=== PATIENT | female | born 1985 | race African-American/Black ===

== ENCOUNTER 2021-04-14 19:29 | Emergency (ER) | payer BC ==
[~2021-04-14] VITALS: Ht 165.1 cm; Wt 81.6 kg
[2021-04-14 19:33] VITALS: BP_SYST 139
[2021-04-14] MEDS ORDERED: ONDANSETRON HCL 4 MG/2 ML VIAL IVP ONE (20:00)
[2021-04-14 20:55] LABS: CALCIUM 8.5 mg/dL (8.4-11.0); CREATININE 0.6 mg/dL (0.55-1.30); POTASSIUM 3.8 mmol/L (3.5-5.1)
[2021-04-14 21:05] LABS: ALBUMIN 3.2 g/dL (3.4-4.8); TOTAL BILIRUBIN 1.9 mg/dL (0.0-1.0)
[2021-04-14 21:10] LABS: EOSINOPHILS % (AUTO) 0.3 % (0.0-4.0); HEMOGLOBIN 11.8 g/dL (12.0-16.0); MONOCYTES # (AUTO) 0.4 K/uL (0.0-1.0)
[2021-04-14 21:17] LABS: BASOPHILS % (AUTO) 0.1 % (0.0-2.0); HEMATOCRIT 35.5 % (36-48); LYMPHOCYTES # (AUTO) 1.2 K/uL (1.0-5.5); LYMPHOCYTES % (AUTO) 13.1 % (20.5-51.5); MEAN CORPUSCULAR HEMOGLOBIN 28 pg (27-31); MEAN CORPUSCULAR HGB CONC 33 % (32-36); MEAN CORPUSCULAR VOLUME 86 fL (79.0-98.0); MONOCYTES % (AUTO) 4.4 % (1.7-9.3); NEUTROPHILS # (AUTO) 7.7 K/uL (1.8-7.7); NEUTROPHILS % (AUTO) 82.1 % (40.0-70.0); PLATELET COUNT (AUTO) 274 K/uL (130-430); RED BLOOD CELL COUNT(AUTO) 4.14 MIL/uL (4.2-6.2); RED CELL DISTRIBUTION WIDTH 15.5 % (9.0-15.0); WHITE BLOOD COUNT (AUTO) 9.4 K/uL (4.8-10.8)
[2021-04-14 22:24] LABS: BILIRUBIN,URINE NEGATIVE (NEGATIVE); BLOOD, URINE NEGATIVE (NEGATIVE); GLUCOSE,URINE NEGATIVE (NEGATIVE); KETONES,URINE NEGATIVE (NEGATIVE); LEUKOCYTE ESTERASE ,URINE TRACE (NEGATIVE); NITRITE, URINE NEGATIVE (NEGATIVE); PH,URINE 8.5 (5.0-8.0); PROTEIN URINE 2+ (NEGATIVE)
[2021-04-14] MEDS ORDERED: fentaNYL CITRATE/PF 100 MCG/2 ML AMP IVP ONE (23:30)
[2021-04-14] MEDS ORDERED: NACL 0.9% 1,000 ML IV ONE (23:30)
[2021-04-14 23:38] LABS: COLOR,URINE AMBER (YELLOW)
[2021-04-14 23:39] LABS: CLARITY/URINE SLIGHTLY HAZY (CLEAR)
[2021-04-14 23:45] LABS: BACTERIA,URINE None Seen /HPF (None Seen)
[2021-04-14 23:46] LABS: MUCUS,URINE 1+ /LPF (None Seen); YEAST,URINE None Seen /HPF (None Seen)
[2021-04-15] MEDS ORDERED: MOM PO (02:10)
[2021-04-15] MEDS ORDERED: ONDA-8 TL (02:10)
[2021-04-15 07:27] VITALS: BP_SYST 139
[2021-04-16 11:07] LABS: HEPATITIS A AB, IgM Negative (Negative); HEPATITIS B CORE AB, IgM Negative (Negative); HEPATITIS B SURFACE AG Negative (Negative)
== END 2021-04-16 03:17 | disposition home or self-care (01) ==
LOC: SED 19:29
DX: B17.9 Acute viral hepatitis, unspecified (principal); K80.20 Calculus of gallbladder without cholecystitis without obstruction; K59.00 Constipation, unspecified; F17.210 Nicotine dependence, cigarettes, uncomplicated; I10 Essential (primary) hypertension; Z79.899 Other long term (current) drug therapy
CPT/HCPCS: 36415; 74176; 76376; 76705; 80053; 80074; 81000; 81025; 84703; 85025; 87086; 87186; 96361; 96374; 99284; J2405; J3010; J7030